=== PATIENT | female | born 1945 | race Hispanic/Latino ===

== ENCOUNTER 2023-01-08 19:59 | Inpatient (IN) | payer OTHER ==
[~2023-01-08] VITALS: Ht 165.1 cm; Wt 50.8 kg
[2023-01-08 21:14] LABS: BASOPHILS % (AUTO) 0.7 % (0.0-5.0); EOSINOPHILS % (AUTO) 0.3 % (0.0-8.0); HEMATOCRIT 36.3 % (36-48); LYMPHOCYTES % (AUTO) 14.3 % (21.0-51.0); MEAN CORPUSCULAR HEMOGLOBIN 30.1 pg (27.0-33.0); MEAN CORPUSCULAR VOLUME 94.3 fL (79-99); MONOCYTES % (AUTO) 5.7 % (3.0-13.0); NEUTROPHILS % (AUTO) 78.7 % (40.0-77.0); PLATELET COUNT (AUTO) 365 K/uL (130-400); RED BLOOD CELL COUNT(AUTO) 3.85 MIL/uL (4.00-5.50); RED CELL DISTRIBUTION WIDTH 13.2 % (11.0-15.5); WHITE BLOOD COUNT (AUTO) 8.8 K/uL (4.8-10.8)
[2023-01-08 21:17] LABS: APPEARANCE,URINE CLOUDY (CLEAR); BILIRUBIN,URINE NEGATIVE (NEGATIVE); COLOR,URINE YELLOW (YELLOW); GLUCOSE, URINE (UA) NEGATIVE (NEGATIVE); KETONES,URINE NEGATIVE (NEGATIVE); LEUKOCYTE ESTERASE ,URINE 500 Leu/uL (NEGATIVE); NITRATE,URINE NEGATIVE (NEGATIVE); OCCULT BLOOD,URINE MODERATE (NEGATIVE); PH,URINE 6.5 (5.0-8.0); PROTEIN,URINE 20 mg/dL (NEGATIVE); UROBILINOGEN,URINE 0.2 mg/dL (0.2-1.0)
[2023-01-08 21:29] LABS: CREATININE 0.9 mg/dL (0.5-1.5); POTASSIUM 3.5 mmol/L (3.5-5.1)
[2023-01-08 21:30] LABS: BACTERIA,URINE MOD /HPF (None Seen); MUCUS,URINE RARE LPF (None Seen); RBC,URINE 26-50 /HPF (0-1); SQUAMOUS EPITHELIAL CELL,UR RARE /HPF (0-2); TRANSITIONAL EPI CELLS,URINE RARE /HPF (None Seen); WBC,URINE TNTC /HPF (0-1); YEAST,URINE BUDDING FEW /HPF (None Seen)
[2023-01-08 21:36] LABS: ALBUMIN 2.9 g/dL (3.5-5.0); TOTAL PROTEIN, SERUM 6.7 g/dL (6.0-8.3)
[2023-01-09] MEDS ORDERED: CEFTRIAXONE 1G VIAL IVP ONE (00:30)
[2023-01-09] MEDS: CEFTRIAXONE 1G VIAL IV SCH (01:30)
[2023-01-09] MEDS ORDERED: ACETAMINOPHEN 325 MG TAB PO PRN ×2 (01:30)
[2023-01-09] MEDS ORDERED: ONDANSETRON 4MG INJ IV PRN (01:30)
[2023-01-09] MEDS ORDERED: LORAZEPAM 2 MG/ML 1 ML VIAL IVP PRN (01:30)
[2023-01-09] MEDS: LEVETIRACETAM 500 MG/5 ML SD VIAL IV SCH ×2 (01:40→13:49)
[2023-01-09] MEDS: LACTATED RINGERS 1000ML 1,000 ML IV SCH ×2 (01:42→21:35)
[2023-01-09 07:35] LABS: BASOPHILS % (AUTO) 0.7 % (0.0-5.0); EOSINOPHILS % (AUTO) 2.2 % (0.0-8.0); HEMATOCRIT 36.7 % (36-48); LYMPHOCYTES % (AUTO) 38.5 % (21.0-51.0); MEAN CORPUSCULAR HEMOGLOBIN 30.3 pg (27.0-33.0); MEAN CORPUSCULAR HGB CONC 31.3 g/dL (32.0-36.0); MEAN CORPUSCULAR VOLUME 96.8 fL (79-99); NEUTROPHILS % (AUTO) 49.3 % (40.0-77.0); PLATELET COUNT (AUTO) 326 K/uL (130-400); RED BLOOD CELL COUNT(AUTO) 3.79 MIL/uL (4.00-5.50); RED CELL DISTRIBUTION WIDTH 13.2 % (11.0-15.5); WHITE BLOOD COUNT (AUTO) 5.9 K/uL (4.8-10.8)
[2023-01-09 07:45] LABS: CREATININE 0.7 mg/dL (0.5-1.5); MAGNESIUM 1.8 mg/dL (1.80-2.40); PHOSPHORUS 3.1 mg/dL (2.5-4.9); POTASSIUM 3.3 mmol/L (3.5-5.1)
[2023-01-09] MEDS: FAMOTIDINE 20MG VIAL IV SCH (09:23)
[2023-01-09] MEDS: ENOXAPARIN SODIUM 30 MG/0.3 ML SQ SCH (09:25)
[2023-01-10] MEDS: CEFTRIAXONE 1G VIAL IV SCH (01:43)
[2023-01-10] MEDS: LEVETIRACETAM 500 MG/5 ML SD VIAL IV SCH ×2 (01:43→14:48)
[2023-01-10 04:04] VITALS: BP 153/74
[2023-01-10 08:35] VITALS: BP 131/82
[2023-01-10] MEDS: FAMOTIDINE 20MG VIAL IV SCH (09:48)
[2023-01-10] MEDS: ENOXAPARIN SODIUM 30 MG/0.3 ML SQ SCH (09:49)
[2023-01-10 12:36] VITALS: BP 144/70
[2023-01-10 12:44] VITALS: BP 139/81
[2023-01-10] MEDS ORDERED: MAGNESIUM 2GM PREMIX 50ML 50 ML IV PRN (13:30)
[2023-01-10] MEDS ORDERED: POTASSIUM CHLORIDE 20MEQ/100ML 100 ML IV PRN (13:30)
[2023-01-10] MEDS ORDERED: KCL 20 MEQ ERTAB PO PRN (13:30)
[2023-01-10 18:35] VITALS: BP 146/80
[2023-01-10] MEDS: POTASSIUM CHLORIDE 10% ELIXIR 20 MEQ/15 ML UDCUP PO PRN ×2 (18:40→20:25)
[2023-01-10 20:03] VITALS: BP 135/87
[2023-01-11] VITALS (7 sets, daily range): BP systolic 124–161; BP diastolic 66–96
[2023-01-11] MEDS: CEFTRIAXONE 1G VIAL IV SCH (00:48)
[2023-01-11] MEDS: POTASSIUM CHLORIDE 10% ELIXIR 20 MEQ/15 ML UDCUP PO PRN (00:50)
[2023-01-11] MEDS: LEVETIRACETAM 500 MG/5 ML SD VIAL IV SCH ×2 (01:52→12:40)
[2023-01-11 03:53] LABS: BASOPHILS % (AUTO) 0.6 % (0.0-5.0); EOSINOPHILS % (AUTO) 1.4 % (0.0-8.0); HEMATOCRIT 37.6 % (36-48); LYMPHOCYTES % (AUTO) 32.3 % (21.0-51.0); MEAN CORPUSCULAR HEMOGLOBIN 29.9 pg (27.0-33.0); MEAN CORPUSCULAR HGB CONC 31.4 g/dL (32.0-36.0); MEAN CORPUSCULAR VOLUME 95.4 fL (79-99); MONOCYTES % (AUTO) 10.9 % (3.0-13.0); NEUTROPHILS % (AUTO) 54.5 % (40.0-77.0); PLATELET COUNT (AUTO) 348 K/uL (130-400); RED BLOOD CELL COUNT(AUTO) 3.94 MIL/uL (4.00-5.50); WHITE BLOOD COUNT (AUTO) 6.6 K/uL (4.8-10.8)
[2023-01-11 04:07] LABS: CREATININE 0.8 mg/dL (0.5-1.5); MAGNESIUM 2.2 mg/dL (1.80-2.40); PHOSPHORUS 3.2 mg/dL (2.5-4.9); POTASSIUM 4.1 mmol/L (3.5-5.1)
[2023-01-11] MEDS: ENOXAPARIN SODIUM 30 MG/0.3 ML SQ SCH (08:44)
[2023-01-11] MEDS: FAMOTIDINE 20MG VIAL IV SCH (08:44)
[2023-01-12] MEDS: LEVETIRACETAM 500 MG/5 ML SD VIAL IV SCH ×2 (01:19→14:45)
[2023-01-12] MEDS: CEFTRIAXONE 1G VIAL IV SCH (01:38)
[2023-01-12 03:46] VITALS: BP 158/95
[2023-01-12 03:56] LABS: BASOPHILS % (AUTO) 0.5 % (0.0-5.0); EOSINOPHILS % (AUTO) 1.5 % (0.0-8.0); HEMATOCRIT 37.6 % (36-48); LYMPHOCYTES % (AUTO) 35.9 % (21.0-51.0); MEAN CORPUSCULAR HEMOGLOBIN 30.2 pg (27.0-33.0); MEAN CORPUSCULAR HGB CONC 32.2 g/dL (32.0-36.0); MEAN CORPUSCULAR VOLUME 93.8 fL (79-99); MONOCYTES % (AUTO) 10.1 % (3.0-13.0); NEUTROPHILS % (AUTO) 51.7 % (40.0-77.0); PLATELET COUNT (AUTO) 347 K/uL (130-400); RED BLOOD CELL COUNT(AUTO) 4.01 MIL/uL (4.00-5.50); WHITE BLOOD COUNT (AUTO) 7.9 K/uL (4.8-10.8)
[2023-01-12 04:31] LABS: CREATININE 0.7 mg/dL (0.5-1.5); POTASSIUM 3.8 mmol/L (3.5-5.1)
[2023-01-12] MEDS: POTASSIUM CHLORIDE 10% ELIXIR 20 MEQ/15 ML UDCUP PO PRN ×2 (06:13→08:30)
[2023-01-12] MEDS: FAMOTIDINE 20MG VIAL IV SCH (08:29)
[2023-01-12] MEDS: ENOXAPARIN SODIUM 30 MG/0.3 ML SQ SCH (08:30)
[2023-01-12 08:50] VITALS: BP 136/83
[2023-01-12 11:50] VITALS: BP 137/78
[2023-01-12] MEDS ORDERED: LEVE-43 PO (12:35)
[2023-01-12] MEDS ORDERED: 0.9%NACL 100ML 100 ML IV SCH (14:00)
== END 2023-01-12 16:41 | disposition home or self-care (01) | DRG 101 ==
LOC: EDH 19:59 → EDHIP 20:00 → 2AH 01-10 03:38
PROVIDERS: ADMIT Internal Medicine; ATTEND Internal Medicine
DX: G40.909 Epilepsy, unspecified, not intractable, without status epilepticus (principal); F03.90 Unspecified dementia, unspecified severity, without behavioral disturbance, psychotic disturbance, mood disturbance, and anxiety; E11.9 Type 2 diabetes mellitus without complications; I10 Essential (primary) hypertension; R53.81 Other malaise
CPT/HCPCS: 36415; 70450; 71045; 74230; 80048; 80053; 80177; 80185; 81001; 83735; 84100; 84484; 85025; 87040; 87088; 92610; 92611; 93005; G0378; J0696; J1650; J1953; J3475; J3490